=== PATIENT | male | born 1990 | race Caucasian/White ===

== ENCOUNTER 2019-10-09 22:15 | Emergency (ER) | payer OTHER ==
[~2019-10-09] VITALS: Ht 167.6 cm; Wt 59.0 kg
[~2019-10-09 22:15] MED LIST: IBUPROFEN 800800 MG PO; NOHOMEMEDICATIONS; ULTRAM 50MG TAB50 MG PO
[2019-10-09 23:00] LABS: ABSOLUTE EOSINOPHILS 0.1 thou/uL (0.0-0.7); ABSOLUTE LYMPHOCYTES 2.4 thou/uL (0.8-5.3); ABSOLUTE MONOCYTES 0.5 thou/uL (0.0-1.2); ABSOLUTE NEUTROPHILS 4.6 thou/uL (1.6-8.1); BASOPHILS 0.5 %; EOSINOPHILS 1.6 %; HEMATOCRIT 45.6 % (42.0-52.0); LYMPHOCYTES 31.6 %; MONOCYTES 6.5 %; MPV 8.6 fl. (7.2-11.1); NUCLEATED RBCS 0 /100WBC; PLATELET COUNT* 204 thou/uL (150-400); POLYS 59.8 %; RDW-CV 13.2 % (10.5-14.5); WBC 7.7 thou/uL (4.0-11.0)
[2019-10-09 23:09] LABS: CALCIUM 8.3 mg/dL (8.5-10.1); CREATININE 0.8 mg/dL (0.6-1.3); POTASSIUM 3.7 mmol/L (3.5-5.1); PROTIME 10.7 Seconds (9.20-11.50)
[2019-10-09 23:13] LABS: ALBUMIN 4.1 g/dL (3.4-5.0); MAGNESIUM 2.2 mg/dL (1.8-2.4); TOTAL BILIRUBIN 0.3 mg/dL (<0.1-1.0); TOTAL PROTEIN 7.9 g/dL (6.4-8.2)
[2019-10-09] MEDS ORDERED: PROTONIX40 M2 PO (23:58)
[2019-10-09] MEDS ORDERED: ZOFRAN ODT4 MG PO (23:59)
[2019-10-10 00:12] VITALS: BP 112/79
--- NOTE | 2019-10-10 10:44 | EKG ---
[place] [address] ELECTROCARDIOGRAM REPORT Name: ZURI LAMBERT Room: [facility]#: [id number] Admission: 10/09/19 Attend Phys: Discharge: 10/10/19 Date of : 88 Date of Service: 10/09/192222 Report #: [id number] THIS REPORT FOR: //name// [facility] ED Test Date: 2019-10-09 Test Time: 22:23:55 Pat Name: ZURI LAMBERT Department: Room: Gender: Residential [employer]: : 1990 Requested By: Tennille Mallory Order Number: [id number] MD: Jason Coreas Measurements Intervals [place] Rate: 99 P: 64 NE: 179 QRS: 71 QRSD: 80 T: 30 QT: 353 QTc: 453 Interpretive Statements Sinus rhythm Left atrial enlargement No previous ECG available for comparison Electronically Signed On 10-10-2019 10:44:18 CDT by Jason Coreas [email or web address] <ELECTRONICALLY SIGNED> By: Jason Coreas MD, [facility] 10/10/19 1044 22 22 Jason Coreas MD, FACC /EPI
== END 2019-10-10 00:14 | disposition home or self-care (01) ==
LOC: M.ERS 22:15
PROVIDERS: Emergency Medicine
DX: K29.20 Alcoholic gastritis without bleeding (principal); F17.210 Nicotine dependence, cigarettes, uncomplicated; F32.9 Major depressive disorder, single episode, unspecified; R19.7 Diarrhea, unspecified; F41.9 Anxiety disorder, unspecified; R07.89 Other chest pain; Z79.899 Other long term (current) drug therapy

== ENCOUNTER 2019-12-11 02:16 | Emergency (ER) | payer OTHER ==
[~2019-12-11] VITALS: Ht 170.2 cm; Wt 56.7 kg
[~2019-12-11 02:16] MED LIST changes: +PROTONIX40 M2 PO; +ZOFRAN ODT4 MG PO
[2019-12-11 02:42] LABS: URINE BILIRUBIN NEGATIVE (Negative); URINE BLOOD NEGATIVE (Negative); URINE CLARITY CLEAR; URINE COLOR YELLOW; URINE GLUCOSE-RANDOM NEGATIVE (Negative); URINE KETONES NEGATIVE (Negative); URINE LEUKOCYTES-REFLEX NEGATIVE (Negative); URINE NITRITE-REFLEX NEGATIVE (Negative); URINE PROTEIN NEGATIVE (Negative); URINE SPECIFIC GRAVITY <= 1.005 (1.005-1.030); URINE UROBILINOGEN 0.2 E.U./dl (0.2-1.0)
[2019-12-11 02:52] LABS: AMP/METHAMP Negative (Negative); BARBITURATES Negative (Negative); BENZODIAZEPINES Negative (Negative); COCAINE Negative (Negative); METHADONE Negative (Negative); OPIATES Negative (Negative); PCP Negative (Negative); THC Negative (Negative)
[2019-12-11 04:33] LABS: HEMATOCRIT 47.1 % (42.0-52.0); HEMOGLOBIN 16.4 gm/dL (14.0-18.0); MCH 33.9 pg (26.0-34.0); MCHC 34.8 g/dL (28.0-37.0); MCV 97.4 fL (80.0-100.0); MPV 9.3 fl. (7.2-11.1); RBC 4.84 mil/uL (4.50-6.00); RDW-CV 12.9 % (10.5-14.5); WBC 9.9 thou/uL (4.0-11.0)
[2019-12-11 04:37] LABS: CALCIUM 8.5 mg/dL (8.5-10.1); POTASSIUM 3.8 mmol/L (3.5-5.1)
[2019-12-11 04:42] LABS: ACETAMINOPHEN < 2 ug/mL (10-30); ALBUMIN 4.3 g/dL (3.4-5.0); SALICYLATE 4.2 mg/dL (2.8-20.0); TOTAL BILIRUBIN 0.2 mg/dL (<0.1-1.0)
[2019-12-11 14:38] VITALS: BP 110/80
== END 2019-12-11 14:39 | disposition home or self-care (01) ==
LOC: M.ERS 02:16
PROVIDERS: Personal Emergency Response Attendant
DX: F10.129 Alcohol abuse with intoxication, unspecified (principal); Y90.8 Blood alcohol level of 240 mg/100 ml or more; F41.9 Anxiety disorder, unspecified; F32.9 Major depressive disorder, single episode, unspecified; Z79.899 Other long term (current) drug therapy

== ENCOUNTER 2020-01-22 18:34 | Emergency (ER) | payer OTHER ==
[~2020-01-22] VITALS: Ht 167.6 cm; Wt 59.0 kg
[2020-01-22] MEDS ORDERED: NAPROSYN500 MG PO (19:51)
[2020-01-22] MEDS ORDERED: MEDROLDOSEPACK PO (19:51)
[2020-01-22 20:00] VITALS: BP 124/72
== END 2020-01-22 19:58 | disposition home or self-care (01) ==
LOC: M.ERS 18:34
DX: M75.41 Impingement syndrome of right shoulder (principal); M79.641 Pain in right hand

== ENCOUNTER 2020-04-04 23:12 | Emergency (ER) | payer OTHER ==
[~2020-04-04] VITALS: Ht 170.2 cm; Wt 57.1 kg
[~2020-04-04 23:12] MED LIST changes: +MEDROLDOSEPACK PO; +NAPROSYN500 MG PO
[2020-04-04 23:55] VITALS: BP 126/70
== END 2020-04-04 23:56 ==
LOC: M.ERS 23:12
DX: S60.221A Contusion of right hand, initial encounter (principal); W22.8XXA Striking against or struck by other objects, initial encounter; Y93.89 Activity, other specified; Y92.89 Other specified places as the place of occurrence of the external cause; Y99.8 Other external cause status

== ENCOUNTER 2020-10-24 21:10 | Emergency (ER) | payer OTHER ==
[~2020-10-24] VITALS: Ht 167.6 cm; Wt 54.4 kg
[2020-10-24] MEDS ORDERED: TRAZODONE HCL50 MG PO (21:26)
[2020-10-24] MEDS ORDERED: HYDROCODON-ACE1 EAC7 PO (21:42)
[2020-10-24] MEDS ORDERED: DOXYCYCLINE 10100 MG PO (21:42)
[2020-10-24 21:47] VITALS: BP 124/87
== END 2020-10-24 21:48 | disposition home or self-care (01) ==
LOC: M.ERS 21:10
DX: L02.511 Cutaneous abscess of right hand (principal); L03.011 Cellulitis of right finger; F17.210 Nicotine dependence, cigarettes, uncomplicated

== ENCOUNTER 2020-12-18 18:16 | Emergency (ER) | payer OTHER ==
[~2020-12-18] VITALS: Ht 167.6 cm; Wt 59.0 kg
[~2020-12-18 18:16] MED LIST changes: +DOXYCYCLINE 10100 MG PO; +HYDROCODON-ACE1 EAC7 PO; +TRAZODONE HCL50 MG PO
[2020-12-18] MEDS ORDERED: SSD CREAM 1% 5050 GM TOP (20:16)
[2020-12-18] MEDS ORDERED: IBUPROFEN 600600 M1 PO (20:16)
[2020-12-18] MEDS ORDERED: ACETAMINOPHEN-1 EAC2 PO (20:16)
[2020-12-18 20:46] VITALS: BP 123/54
== END 2020-12-18 20:46 | disposition home or self-care (01) ==
LOC: M.ERS 18:16
DX: T23.201A Burn of second degree of right hand, unspecified site, initial encounter (principal); F32.9 Major depressive disorder, single episode, unspecified; F41.9 Anxiety disorder, unspecified; Z79.899 Other long term (current) drug therapy; X11.8XXA Contact with other hot tap-water, initial encounter; Y93.89 Activity, other specified; Y92.89 Other specified places as the place of occurrence of the external cause; Y99.0 Civilian activity done for income or pay